=== PATIENT | female | born 1965 | race Caucasian/White ===

== ENCOUNTER 2016-07-06 03:40 | Inpatient (IN) | payer OTHER ==
--- NOTE | ~2016-07-06 | DS ---
Discharge Summary [facility] [address] [facility] [place]. [address] NAME: MELANIE FISHMAN : 65 STATUS : ADM Ginny PAT#: [id number] AGE: 51 ADM/REG DATE : 07/06/16 MR#: [id number] REPORT SERV DATE: 07/09/16 DICTATED BY: SHAKEEL MEHTA DATE: 07/09/16 REPORT STATUS : Draft TRANSCRIBED BY: MODL DATE: 07/09/16 ADMISSION DATE: 07/06/2016 DISCHARGE DATE: 07/09/2016 DIAGNOSES ON ADMISSION: 1. Possible pneumonia. 2. Common variable immunodeficiency. 3. Reactive airway disease. 4. Lupus. DIAGNOSES ON DISCHARGE: 1. No evidence of pneumonia on the CT of the chest and clinically. 2. Asthma exacerbation, improved. 3. History of common variable immunodeficiency, the patient received IVIG infusion while was hospitalized. 4. History of lupus, stable. 5. History of Conn syndrome, status post left adrenalectomy. 6. No evidence of hypokalemia while being in the hospital hospitalized. Potassium was in the normal range without oral potassium supplementation. CONSULTANTS ON THE CASE: Fran Lundy of Pulmonology, nurse practitioner, under supervision of Dr. Wild. IMAGING STUDIES: CTA of the chest done on 07/06 showed a mild pulmonary edema, much less impressive on the plain film. No evidence of pulmonary embolism. No evidence of pneumonia. Chest x-ray, which was done on 07/06, no acute process. HISTORY OF PRESENT ILLNESS: Briefly, this is a 51-year-old female with a history of common variable immunodeficiency and asthma, presented with asthma exacerbation as well as wheezing. The patient was admitted by my colleague, Dr. Keene, who initially thought that the patient may have pneumonia, but the CTA of the chest did not show any evidence of pneumonia. For the details, see history of present illness dictated by Dr. Keene. HOSPITAL COURSE: Briefly, next day after admission, the patient was seen by my colleague, Dr. Diaz, who did not see any evidence of pneumonia, and the patient had a normal white count on admission. Her white count on admission was 10.3, as well as her procalcitonin was less than 0.05. She was afebrile, and the CT of the chest was negative for pneumonia. Dr. Diaz discussed this patient with Dr. Hernandez of Infectious Disease and he stopped her antibiotics, but the Solu-Medrol was continued for her COPD exacerbation as well as the inhalers. The patient improved over the next several days. She also had intravenous IVIG infusion for her common variable immunodeficiency. The patient was unable to receive these infusions at home because she was undergoing transition of her insurance and that is why she did not receive them. She needs to go back to the primary care physician to be sure that she will receive her IVIG infusions. [employer] Representative, Fran Lundy saw this patient, and he also does not think she has pneumonia. Discharge Summary [facility] [address] [place] [address] NAME: MELANIE FISHMAN : 65 STATUS : ADM Ginny PAT#: [id number] AGE: 51 ADM/REG DATE : 07/06/16 MR#: [id number] REPORT SERV DATE: 07/09/16 DICTATED BY: SHAKEEL MEHTA DATE: 07/09/16 REPORT STATUS : Draft TRANSCRIBED BY: SYDNIE DATE: 07/09/16 He recommended for her asthma exacerbation to complete azithromycin and Ceftin for two more days and she needs also tapering course of steroids. She was doing well. Today, her wheezing has resolved and she is ready for discharge today. Also regarding her potassium supplementation, the patient takes at home 20 mEq of potassium three times a day for her history of Conn syndrome and history of adrenalectomy, but here while she was hospitalized, her potassium level was in the normal range, like on 07/06 was 4.4, on 07/07 was 3.9, on 07/08 was 4.0, and today was 4.3 and she was not on any potassium supplementation for all these days. Also, the patient is on valsartan 160 twice a day, so at home the patient takes high dose of potassium 20 mEq three times a day. Because of her potassium being normal and because of risk of hyperkalemia, I recommended the patient to take potassium only 20 mEq once a day and to check her potassium level on Wednesday, 07/13 per her primary care physician, Dr. Renee Hogan. Overall, the patient looks good, she is ready for discharge. DISCHARGE MEDICATIONS: Celebrex 200 mg once a day; Voltaren Gel 1% topically p.r.n.; Flexeril 10 mg a day; azithromycin 500 mg daily for two more days and cefuroxime 500 mg p.o. b.i.d. for two more days; Lexapro 30 mg a day; iron polysaccharide 200 mg three times a day; Neurontin 300 mg before meals and 1200 mg at bedtime; Plaquenil 200 mg daily; levothyroxine 50 mcg a day; magnesium oxide 400 mg three times a day; Singulair 10 mg a day; zoledronic acid 5 mg IV q.24 months; CellCept 1000 mg a day; oxycodone 30 mg p.o. q.12 hours; propranolol 60 mg b.i.d.; psyllium one dose at bedtime; Carafate 1 g p.o. before meals and at bedtime; valsartan 160 p.o. b.i.d.; albuterol inhaled q.4 hours p.r.n.; potassium chloride was recommended to decrease to 20 mEq once a day and to check potassium level on 07/[address] Hogan; Prevacid 30 mg a day; Ambien CR 12.5 mg a day; oxycodone 10/325 five times a day; Xanax 1 mg p.o. four times a day p.r.n.; IVIG injections weekly; albuterol one to two puffs inhaled q.4 hours p.r.n.; was recommended to stop Advil; isosorbide 30 mg a day; Breo Ellipta 100/25 daily; and prednisone 30 mg p.o. for one day, then 20 mg p.o. for one day, then 10 mg p.o. for one day, then 5 mg p.o. for one day, then stop. Norvasc prescription for her blood pressure was given 5 mg p.o. daily. The patient's blood pressure was mostly in the normal range. It was today 148/74, 131/73, 127/61, 142/79, 159/89. She said that sometimes it gets elevated. I recommended to start with low-dose Norvasc. The prescriptions for Norvasc 5 mg a day, Ceftin 500 p.o. b.i.d. for two more days, and Zithromax 500 mg daily for two more days were written by me. Prednisone prescription was written by Fran Lundy. DISCHARGE INSTRUCTIONS: Follow up with digester, Dr. Paniagua, she has an appointment already scheduled, and follow up with Dr. Renee Hogan on Wednesday, 07/13 to check her potassium level. I spent 45 minutes on discharge. MG/MODL Discharge Summary [address] [place]. [address] NAME: MELANIE FISHMAN : 65 STATUS : ADM Ginny PAT#: [id number] AGE: 51 ADM/REG DATE : 07/06/16 MR#: [id number] REPORT SERV DATE: 07/09/16 DICTATED BY: SHAKEEL MEHTA DATE: 07/09/16 REPORT STATUS : Draft TRANSCRIBED BY: SYDNIE DATE: 07/09/16 Shakeel Mehta M.D. / [id number] CC: Chhaya Morrell M.D. Nathan Mull IV, M.D.
--- NOTE | ~2016-07-06 | HP ---
History And Physical [facility] [id number] [facility] [place]. [address] NAME: MELANIE FISHMAN : 65 STATUS : ADM Ginny PAT#: [id number] AGE: 51 ADM/REG DATE : 07/06/16 MR#: [id number] REPORT SERV DATE: 07/06/16 DICTATED BY: ROSELINE OTT DATE: 07/06/16 REPORT STATUS : Draft TRANSCRIBED BY: MODL DATE: 07/06/16 DATE OF ADMISSION: 07/06/2016 PRIMARY CARE PHYSICIAN: Dr. Jeffrey, an auto glass installer. CHIEF COMPLAINT: A 51-year-old female with common variable immunodeficiency now presenting with shortness of breath and evidence of pneumonia. HISTORY OF PRESENTING ILLNESS: The patient's history was obtained through careful interview with the patient and daughter coupled with review of [facility] medical records. The patient has common variable immunodeficiency and had been receiving IVIG infusions weekly for about five years but she had a change in her insurance recently and states that she has been unable to get her IVIG infusions for about six weeks. It was just a couple weeks ago that she began to feel to get what she describes as "allergies" with some sinus drainage that gradually began to descend into her chest. For the last "couple of days", she has had increasing shortness of breath characterized by dyspnea on exertion, a prominent wheeze, and a cough productive of a slight sputum that has a bit of yellow in it. She has had light headedness, had subjective fevers and chills. She describes chest discomfort, a burning sensation with breathing in the middle of her chest, 8/10 severity. She has had nausea, but no vomiting. She describes abdominal swelling and slight lower extremity edema. REVIEW OF SYSTEMS: Otherwise, a 14-point review of systems was obtained and was negative. PAST MEDICAL HISTORY: 1. Common variable immunodeficiency, previously on weekly IVIG infusions for the last five years followed by Dr. Jeffrey, auto glass installer. 2. Lupus with Sjogren's seen by Dr. Tasneem Diaz. 3. Breast cancer in 2003, status post surgical resection. 4. Nephrolithiasis, status post stent placement. 5. Mesenteric lymphadenopathy. 6. Conn's disease, status post left adrenalectomy. 7. Anxiety and depression. 8. Gastroesophageal reflux disorder. 9. Hypothyroidism. 10.Migraine headaches. 11.Pneumonia with ARDS and possible MRSA infection in the past. 12.Right arm neuralgia. History And Physical [address] [address] NAME: MELANIE FISHMAN : 65 STATUS : ADM Ginny PAT#: [id number] AGE: 51 ADM/REG DATE : 07/06/16 MR#: [id number] REPORT SERV DATE: 07/06/16 DICTATED BY: ROSELINE OTT DATE: 07/06/16 REPORT STATUS : Draft TRANSCRIBED BY: SYDNIE DATE: 07/06/16 PAST SURGICAL HISTORY: 1. Bilateral mastectomy. 2. Left adrenalectomy. 3. Hysterectomy with oophorectomy. 4. Lumbar spine surgery. 5. Cholecystectomy. ALLERGIES: NO KNOWN DRUG ALLERGIES. 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 She has total of two children. Lives in [place], [place]. No tobacco abuse. No alcohol abuse. FAMILY HISTORY: Father with pulmonary embolism, CABG, at 63 years of age. Brother with lymphoma. Mother with obstructive sleep apnea, of COPD at 69 years of age. A strong family history of stroke. CURRENT MEDICATIONS: Albuterol inhaler, Xanax 1 mg p.o. four times a day as needed, Celebrex 200 mg p.o. b.i.d., Flexeril 10 mg p.o. 4 times a day, diclofenac topical gel, Lexapro 30 mg p.o. daily, iron supplement, Breo Ellipta inhaled daily, Neurontin 300 mg p.o. t.i.d. and 1200 mg at bedtime, Plaquenil 200 mg daily, Advil p.r.n., Prevacid 30 mg p.o. b.i.d., Synthroid 50 mcg daily, magnesium 3 times a day, Singulair 10 mg daily, CellCept 1000 mg p.o. b.i.d., Percocet 5 times a day as needed, OxyContin 30 mg p.o. q.12 hours scheduled, eye drops, potassium 20 mEq p.o. t.i.d., propranolol 60 mg p.o. b.i.d., Metamucil sucralfate 1 g before meals and at bedtime, isosorbide, Diovan 160 mg p.o. b.i.d., Dashawn. PHYSICAL EXAMINATION: VITAL SIGNS: Temperature 98.9, pulse 102, blood pressure 162/105, respiratory rate 20, O2 saturation 97% on room air. GENERAL: Pleasant, cooperative female, in no significant distress. HEENT: Pupils equal, round, and reactive to light. No conjunctival pallor. No scleral icterus. Nares are patent. Oropharynx is clear of obstruction. Moist mucous membranes. NECK: Trachea midline. No thyromegaly. LYMPH: No cervical lymphadenopathy. No supraclavicular lymphadenopathy. RESPIRATORY: Scattered rhonchi and inspiratory and expiratory wheezes that are quite harsh, "tight" exam. I do not appreciate any focal egophony by exam. She does have a labored respiratory effort. CARDIOVASCULAR: Tachycardic. Regular rhythm. No murmurs, rubs, or gallops. No extremity edema. The patient has slight minimally pitting lower extremity edema around her ankles. That is symmetrical. ABDOMEN: Soft, nontender, nondistended. Normal bowel sounds auscultated throughout. No organomegaly. DERMATOLOGICAL: Warm, dry. EXTREMITIES: No pallor. No cyanosis. PSYCHIATRIC: Normal affect. Good mood. Alert and oriented x3. LABORATORY DATA: White blood cell count 10, hemoglobin 12, hematocrit 37, platelets 287. History And Physical [address] [address] NAME: MELANIE FISHMAN : 65 STATUS : ADM Ginny PAT#: [id number] AGE: 51 ADM/REG DATE : 07/06/16 MR#: [id number] REPORT SERV DATE: 07/06/16 DICTATED BY: ROSELINE OTT DATE: 07/06/16 REPORT STATUS : Draft TRANSCRIBED BY: MODL DATE: 07/06/16 Sodium 143, potassium 3.4, chloride 104, bicarb 29, BUN 6, creatinine 0.83, glucose 85. Urinalysis negative for infection. Lactic acid 1.1. INR 1.0. STUDIES: 1. Chest x-ray by my own evaluation shows a patchy infiltrate in the left lower lung. 2. CT angiogram of the chest shows no pulmonary embolism, confirms left lower lung pneumonia. 3. EKG by my own evaluation shows sinus rhythm, no major abnormalities otherwise. ASSESSMENT AND PLAN: 1. Community-acquired pneumonia. Check blood cultures. Place on IV antibiotics. History of MRSA pneumonia and ARDS. Place on IV vancomycin as well. Consult infectious disease. 2. Common variable immunodeficiency but also has immunodeficiency secondary to chronic Plaquenil and CellCept use. The patient has skipped IVIG infusions for six weeks. We will continue IVIG infusion here. 3. Reactive airway disease. Place on DuoNeb nebulizers, IV steroids. 4. Lupus. Check complement levels. KPL/MODL Roseline Ott M.D. / [id number] CC: Chhaya Gilmore M.D. Shannon McCallie, M.D.
--- NOTE | ~2016-07-06 | CN ---
Consultation Report [facility] [address] [place]. [address] NAME: SARAH MARS : 65 STATUS : ADM Ginny PAT#: [id number] AGE: 51 ADM/REG DATE : 07/06/16 MR#: [id number] REPORT SERV DATE: 07/08/16 DICTATED BY: PEDRO BEAN DATE: 07/08/16 REPORT STATUS : Draft TRANSCRIBED BY: MODL DATE: 07/08/16 CONSULTATION NOTE DATE OF CONSULTATION: 07/08/2016 CHIEF COMPLAINT: Shortness of breath and wheezing. HISTORY OF PRESENT ILLNESS: Ms. Sarah Mars is a very pleasant 51-year-old white female with a past medical history significant for previous respiratory failure, requiring intubation; CVID, on replacement therapy; reactive airway disease; and obstructive sleep apnea with CPAP compliance who presents to [facility]'s Emergency Room with complaints of chest congestion and cough of roughly one week's duration. It should be noted that Ms. Mars has not been hospitalized recently and has done fairly well as an outpatient given her comorbidities. Ms. Mars is currently followed by Dr. Paniagua in our outpatient clinic. She is not usually require supplemental oxygen. She is on a pulmonary regimen of albuterol, Breo Ellipta, Singulair, and Incruse Ellipta of which she is compliant. She describes herself as a never smoker. The patient does have known obstructive sleep apnea, is compliant with CPAP therapy. She describes her exercise tolerance as being somewhat limited, being able to walk less than 100 yards before experiencing some degree of shortness of breath. Ms. Mars was hospitalized approximately a year ago when she had a severe MRSA pneumonia, which required intubation, mechanical ventilation, and a somewhat prolonged ICU stay. She did eventually transferred to a rehab facility and eventually transitioned to home. She has been intermittently compliant with her IVIG infusions. There have been some issues with insurance covers and she has missed a few doses. She has had occasional upper respiratory infections, but nothing all that significant in the interim period. More recently, she began to experience upper respiratory symptoms including increased nasal drainage and some mild cough. She states that "it eventually moved into her chest." She began to cough more, and as such, agreed she developed some soreness in her chest and abdomen. These symptoms became progressively worse and culminated in her presentation to [facility]'s Emergency Room. Upon arrival, she had a systolic blood pressure in the 160s. She was afebrile. Oxygen saturation was appropriate on room air. Initial blood work revealed a white blood cell count of 10,300. Creatinine was 0.83. She did undergo a chest x-ray, which was suggestive of a left lower lobe pneumonia. She did eventually undergo a CTA of the chest two days ago, which had findings more suggestive of pulmonary edema rather than acute infection. The patient did remain on community-acquired antibiotic coverage. She did improve until yesterday and was even being considered for discharge when she started to develop some symptoms consistent with bronchospasm. For the aforementioned reasons, she has been referred to the Pulmonary Service for further assessment. Currently, Ms. Mars's main pulmonary complaint is wheezing. She does have a dry Consultation Report [address] [place]. [address] NAME: SARAH MARS : 65 STATUS : ADM Ginny PAT#: [id number] AGE: 51 ADM/REG DATE : 07/06/16 MR#: [id number] REPORT SERV DATE: 07/08/16 DICTATED BY: PEDRO BEAN DATE: 07/08/16 REPORT STATUS : Draft TRANSCRIBED BY: SYDNIE DATE: 07/08/16 nonproductive cough. She does have some shortness of breath when she ambulates from the bed to the chair. She is on room air. She has had no recent episodes of hemoptysis. She does have known restrictive airway disease, has demonstrated on pulmonary function testing. She does have symptoms consistent with reactive airway disease. The patient currently denies any murmurs, angina, or palpitations. She has had some increasing lower extremity edema as of late. In regard to constitutional symptoms, she did have subjective fevers. She denies any rigors. She has had no radiating chest pain. She has had no nausea or vomiting. PAST MEDICAL HISTORY: 1. Respiratory failure, requiring intubation. 2. Common variable immunodeficiency, on IVIG replacement. 3. Hypothyroidism. 4. Gastroesophageal reflux disease. 5. Hypertension. 6. Systemic lupus erythematosus. 7. Obstructive sleep apnea with CPAP compliance. 8. Nephrolithiasis. 9. Breast cancer, status post right mastectomy. 10.Pneumonia. 11.Conn syndrome. PAST SURGICAL HISTORY: 1. Total abdominal hysterectomy with bilateral salpingo-oophorectomy. 2. Right mastectomy with TRAM flap. 3. Discectomy of lumbar spine. 4. Cholecystectomy. 5. Left adrenalectomy. FAMILY HISTORY: The patient states her mother had COPD as well as obstructive sleep apnea. SOCIAL HISTORY: The patient is . She has two children, in good health. She works as a physical therapist in the outpatient clinic. She denies any known exposures to dust, silica, or asbestos. She has no new or exotic pets within the home. TOBACCO/ALCOHOL: As previously mentioned, the patient describes herself as a never smoker. She denies any recent alcohol or illicit drug use. MEDICATIONS: 1. Albuterol. 2. Xanax 1 mg. 3. Celebrex 200 mg. 4. Flexeril 10. Consultation Report [address] [place]. [address] NAME: SARAH MARS : 65 STATUS : ADM Ginny PAT#: [id number] AGE: 51 ADM/REG DATE : 07/06/16 MR#: [id number] REPORT SERV DATE: 07/08/16 DICTATED BY: PEDRO BEAN DATE: 07/08/16 REPORT STATUS : Draft TRANSCRIBED BY: SYDNIE DATE: 07/08/16 5. Lexapro 20 mg. 6. Breo Ellipta. 7. Gabapentin 300. 8. Plaquenil 200 mg. 9. Gammagard. 10.Lansoprazole 30 mg. 11.Levothyroxine 50 mcg. 12.Magnesium oxide 400 mg. 13.Montelukast 10 mg. 14.Mycophenolate 500 mg. 15.Percocet 10/325. 16.Potassium chloride 20 mEq. 17.Propranolol 60 mg. 18.Incruse Ellipta. 19.Valsartan 160 mg. 20.Zolpidem 12.5 mg. ALLERGIES: THE PATIENT HAS NO KNOWN DRUG ALLERGIES. REVIEW OF SYSTEMS: A complete review of systems was performed with the pertinent positives and negatives contained within the body of the HPI. PHYSICAL EXAMINATION: VITAL SIGNS: Blood pressure is 156/81, heart rate is 98, T-max is 98.0, respiratory rate is 16, and SpO2 is 95% on room air. GENERAL: The patient is a pleasant, well-nourished/well-developed female who is not currently exhibiting any signs of acute distress. Skin: Skin with appropriate texture and turgor. No rashes, lesions, or ulcers. Nails are clear without cyanosis or clubbing. HEENT: Head: Skull is normocephalic/atraumatic. Facies symmetric. No masses or lesions. Eyes: Sclera anicteric, conjunctiva pink without exudates. Extra ocular movements intact. Pupils are equal, round, reactive to light. Ears: Auricles and tragus without pain to palpation. Hearing is grossly intact. Nose: Bilateral nasal patency. Sinuses without tenderness upon palpation. Throat: The patient has good dentition. Mallampati class III to IV. Lips, oral mucosa, tongue, palate, and pharynx pink and moist without lesions. Uvula rises equally on phonation. Tongue midline without deviation. NECK: Neck supple. Trachea midline. No cervical lymphadenopathy appreciated. THORAX/LUNGS: Thorax is symmetric with equal chest rise. Diffuse expiratory wheezes appreciated throughout. CARDIOVASCULAR: Regular rate and rhythm. No murmurs, rubs, or gallops. Anterior chest without thrills, heaves, or lifts. ABDOMEN: Soft. Non-distended, non-tender. Active bowel sounds in all four quadrants. No hepatosplenomegaly noted. Consultation Report [address] [place]. [address] NAME: SARAH MARS : 65 STATUS : ADM Ginny PAT#: [id number] AGE: 51 ADM/REG DATE : 07/06/16 MR#: [id number] REPORT SERV DATE: 07/08/16 DICTATED BY: PEDRO BEAN DATE: 07/08/16 REPORT STATUS : Draft TRANSCRIBED BY: SYDNIE DATE: 07/08/16 PERIPHERAL VASCULAR: Mild nonpitting edema in the lower extremities. No varicosities, stasis changes, open sores, ulcerations, or phlebitis. 2+ pulses in radial and dorsalis pedis. MUSCULOSKELETAL: Full AROM and PROM in all joints. No evidence of erythema, deformity, or crepitus. NEUROLOGIC: CN II - XII grossly intact. Good muscle bulk and tone bilaterally. Strength 5/5 throughout. PSYCHIATRIC: Patient demonstrates good judgment and insight. Pt is A&O x 3. ACCESSORY DATA: Magnesium is 1.8. BNP is 33.6. Procalcitonin is negative at 0.05. Arterial blood gas obtained on room air reveals a pH 7.43, PaCO2 of 31, PaO2 of 80, and a bicarb of 20.1. White blood cell count today is 13,700, hemoglobin and hematocrit is 11.0 and 34.0. CTA of the chest reveals no clear signs of pulmonary embolism. There is some mild pulmonary edema as well as atelectatic lung. Blood cultures are negative to date. Urine antigens for Strep and Legionella are negative. IMPRESSION: 1. Exacerbation of asthma. 2. Community-acquired pneumonia. 3. Atelectasis. 4. Pulmonary edema. 5. Obstructive sleep apnea with CPAP compliance. 6. Common variable immunodeficiency, currently on replacement therapy. 7. Systemic lupus erythematosus, on chronic immunosuppressants. PLAN: 1. At this time, we will increase the patient's steroids and place her on a full armamentarium of nebulized medications. 2. In regard to the patient's community-acquired pneumonia, she has been treated on appropriate coverage. Her leukocytosis is likely attributed to her steroid regimen. Certainly in an immunocompromised patient, there is a possibility of an atypical infection. That being said, she does not appear toxic today and we have no immediate plans to pursue bronchoscopy. 3. In regard to the patient's atelectasis, we will increase her pulmonary toilet regimen. 4. In regard to the patient's pulmonary edema on CT, her low BNP has been noted. We will provide her with a one time dose of oral Lasix and follow with further recommendations. 5. In regard to the patient's common variable immunodeficiency, her noncompliance is largely secondary to insurance issues. Her plans moving forward is to be more compliant. The aforementioned impression and plan has been discussed with Dr. Wild who will follow further recommendations. We thank you for this consult and look forward to participating in the care of Sarah Mars. Consultation Report [address] [address] NAME: SARAH MARS : 65 STATUS : ADM Ginny PAT#: [id number] AGE: 51 ADM/REG DATE : 07/06/16 MR#: [id number] REPORT SERV DATE: 07/08/16 DICTATED BY: PEDRO BEAN DATE: 07/08/16 REPORT STATUS : Draft TRANSCRIBED BY: MODL DATE: 07/08/16 GBS/MODL Pedro Bean PA-C / [id number] CC: Chhaya Morrell M.D.
[2016-07-06 03:03] LABS: BASOPHILS 0.2 %; BASOPHILS ABSOLUTE 0.02 10/3/uL (0.0-0.16); EOSINOPHILS 1.8 %; EOSINOPHILS ABSOLUTE 0.19 10/3/uL (0.0-0.53); ER CBC TAT 0 Hrs 05 Mins; HEMOGLOBIN 12.2 g/dL (12.0-16.0); IMMATURE GRANULOCYTES 0.9 %; IMMATURE GRANULOCYTES ABSOLUTE 0.09 10/3/uL (0.0-0.11); LYMPHOCYTES 37.9 %; LYMPHOCYTES ABSOLUTE 3.91 10/3/uL (0.67-4.30); MEAN CORPUSCULAR HEMOGLOB 31.1 pg (26.0-34.0); MEAN PLATELET VOLUME 10.9 fL (9.2-13.0); MONOCYTES 6.3 %; MONOCYTES ABSOLUTE 0.65 10/3/uL (0.21-1.20); NEUTROPHILS 52.9 %; NEUTROPHILS ABSOLUTE 5.47 10/3/uL (2.02-8.40); PLATELET COUNT 287 10/3/uL (150-400); RBC DISTRIBUTION WIDTH 13.4 % (12.0-16.0); RED CELL COUNT 3.92 10/6/uL (4.0-5.6); WHITE BLOOD CELLS 10.3 10/3/uL (4.5-10.5)
[2016-07-06 03:04] LABS: MEAN CORPUSCULAR VOLUME 94.4 fL (80-100)
[2016-07-06 03:05] LABS: MANUAL DIFF NO %
[2016-07-06 03:17] LABS: PROTIME (NOT ORD) 12.9 SEC (12.0-14.5)
[2016-07-06 03:22] LABS: A/G RATIO 1.2 (0.7-1.9); ALBUMIN 3.9 G/DL (3.5-5.0); BUN (BLOOD UREA NITROGEN) 6 MG/DL (6-23); CALCIUM, SERUM 9.3 MG/DL (8.5-10.4); CHLORIDE, SERUM 104 MMOL/L (96-112); CO2 (CARBON DIOXIDE) 29 MMOL/L (24-34); CREATININE 0.83 MG/DL (0.55-1.02); GFR AFRICAN AMERICAN 95 ML/MIN (>=60); GFR NON AFRICAN AMERICAN 82 ML/MIN (>=60); GLOBULIN 3.2 G/DL (2.5-4.1); POTASSIUM, SERUM 3.4 MMOL/L (3.5-5.3); SGOT(AST) 18 U/L (5-40); SGPT(ALT) 27 U/L (5-65); SODIUM, SERUM 143 MMOL/L (135-148); TOTAL BILIRUBIN 0.6 MG/DL (0-1.2); TOTAL PROTEIN 7.1 G/DL (6.0-8.5)
[2016-07-06 03:25] LABS: ALKALINE PHOSPHATASE 92 U/L (45-117); GLUCOSE, SERUM 85 MG/DL (60-99)
[2016-07-06 03:30] LABS: LACTATE 1.1 MMOL/L (0.3-2.4); PARTIAL THROMBO TIME 21.1 SEC (22.5-37.2)
[~2016-07-06 03:40] MED LIST: ADVIL PO; AMBIEN CR12.5 MG PO; BLINK EYE DROPS OPH; BONIVA150 MG PO; CAT2 PO; CELEBREX2 PO; CELEXA10 PO; CELLCEPT5 PO; DEMA20 PO; DIOV160 PO; EFFEX25 PO; EFFEXOR100 MG PO; EZFE 200200 MG PO; FISH OIL1200 MG PO; FLEX PO; GAMMAGARD SC; INDE60 PO; IVIG IV; KDUR20 PO; KLOR-CON M2020 MEQ PO; L40 PO; LEXAPRO10 PO; LEXAPRO20 PO; LOP50 PO; MAGOX4 PO; METAMUCIL CAN7 OZ PO; MICRO-K10 MEQ PO; NEUR300 PO; NEUR600 PO; OXYCONTIN30 MG PO; P20 PO; PERCOCET1 TA4 PO; PLAQ200B PO; PREV30 PO; PROVENTSOL INH; RECLAST IV; REG PO; SINGULAIR1 PO; SUCR PO; SYN.05 PO; SYSTANE OPH; VENTOLIN HFA INH; VOLTAREN1 % TOP; XANAX1 MG PO; ZAROX2.5B PO; ZESTRIL10 MG PO
[2016-07-06 04:13] LABS: ASCORBIC ACID (UR NOT ORDER) NEG (NEG); BILIRUBIN, URINE NEGATIVE (NEG); ER URINALYSIS TAT 0 Hrs 00 Mins; KETONE, URINE NEGATIVE (NEG); LEUKOCYTE ESTERASE(NOT OR NEG (NEG); NITRITE (URINE) NEG (NEG); WBC (NOT ORDERED) (RFLEX) 0 (0-5)
[2016-07-06] MEDS ORDERED: INCRUSE ELLI62.5 MCG INH (05:56)
[2016-07-06] MEDS ORDERED: BREO ELLIPTA INH (05:56)
[2016-07-06] MEDS ORDERED: ISOSORBIDE PO (05:56)
[2016-07-06 06:07] LABS: PROCALCITONIN <0.05 ng/mL (<0.5)
[2016-07-06 13:32] LABS: BUN (BLOOD UREA NITROGEN) 9 MG/DL (6-23); CALCIUM, SERUM 8.9 MG/DL (8.5-10.4); CHLORIDE, SERUM 107 MMOL/L (96-112); CO2 (CARBON DIOXIDE) 26 MMOL/L (24-34); COMPLEMENT C3 149 MG/DL (75-161); COMPLEMENT C4 27.7 MG/DL (16-47); CREATININE 0.62 MG/DL (0.55-1.02); GFR AFRICAN AMERICAN 121 ML/MIN (>=60); GFR NON AFRICAN AMERICAN 104 ML/MIN (>=60); GLUCOSE, SERUM 131 MG/DL (60-99); POTASSIUM, SERUM 4.4 MMOL/L (3.5-5.3); SODIUM, SERUM 143 MMOL/L (135-148); TROPONIN I <0.02 NG/ML (<0.05)
[2016-07-06 14:09] LABS: BE (BASE EXCESS) -3.3 MEQ/L (0 +/- 2.5); CARBOXYHEMOGLOBIN 3.3 % (0-3); HCO3 (ACTUAL BICARBONATE) 20.1 MEQ/L (23-27); HEMOBLOGIN CONTENT 12.1 G/DL (12-16); INSTRUMENT SERIAL # 8087; METHEMOGLOBIN 0.3 % (0-3); O2 CONTENT 15.7 VOL% (18-24); PCO2 (CO2 TENSION) 31 MMHG (35-45); PO2 (O2 TENSION) 80 MMHG (79-93); SAMPLE Arterial; pH 7.43 (7.37-7.43)
[2016-07-07 06:09] LABS: BASOPHILS 0.1 %; BASOPHILS ABSOLUTE 0.02 10/3/uL (0.0-0.16); EOSINOPHILS 0.3 %; EOSINOPHILS ABSOLUTE 0.04 10/3/uL (0.0-0.53); IMMATURE GRANULOCYTES 0.6 %; IMMATURE GRANULOCYTES ABSOLUTE 0.08 10/3/uL (0.0-0.11); LYMPHOCYTES 15.9 %; LYMPHOCYTES ABSOLUTE 2.17 10/3/uL (0.67-4.30); MEAN CORPUS HGB CONC 32.4 g/dL (32.0-36.0); MEAN CORPUSCULAR HEMOGLOB 30.9 pg (26.0-34.0); MEAN CORPUSCULAR VOLUME 95.5 fL (80-100); MEAN PLATELET VOLUME 10.8 fL (9.2-13.0); MONOCYTES 2.9 %; MONOCYTES ABSOLUTE 0.39 10/3/uL (0.21-1.20); NEUTROPHILS 80.2 %; NEUTROPHILS ABSOLUTE 10.96 10/3/uL (2.02-8.40); PLATELET COUNT 261 10/3/uL (150-400); RBC DISTRIBUTION WIDTH 13.4 % (12.0-16.0); RED CELL COUNT 3.56 10/6/uL (4.0-5.6); WHITE BLOOD CELLS 13.7 10/3/uL (4.5-10.5)
[2016-07-07 06:10] LABS: MANUAL DIFF NO %
[2016-07-07 06:25] LABS: BUN (BLOOD UREA NITROGEN) 10 MG/DL (6-23); CALCIUM, SERUM 9.1 MG/DL (8.5-10.4); CHLORIDE, SERUM 106 MMOL/L (96-112); CO2 (CARBON DIOXIDE) 25 MMOL/L (24-34); CREATININE 0.62 MG/DL (0.55-1.02); GFR AFRICAN AMERICAN 121 ML/MIN (>=60); GFR NON AFRICAN AMERICAN 104 ML/MIN (>=60); POTASSIUM, SERUM 3.9 MMOL/L (3.5-5.3); SODIUM, SERUM 142 MMOL/L (135-148)
[2016-07-07 06:26] LABS: GLUCOSE, SERUM 99 MG/DL (60-99)
[2016-07-08 06:25] LABS: BUN (BLOOD UREA NITROGEN) 10 MG/DL (6-23); CALCIUM, SERUM 9.2 MG/DL (8.5-10.4); CHLORIDE, SERUM 106 MMOL/L (96-112); CO2 (CARBON DIOXIDE) 25 MMOL/L (24-34); CREATININE 0.66 MG/DL (0.55-1.02); GFR AFRICAN AMERICAN 119 ML/MIN (>=60); GFR NON AFRICAN AMERICAN 102 ML/MIN (>=60); GLUCOSE, SERUM 107 MG/DL (60-99); SODIUM, SERUM 142 MMOL/L (135-148)
[2016-07-09 06:06] LABS: BASOPHILS 0.1 %; BASOPHILS ABSOLUTE 0.01 10/3/uL (0.0-0.16); EOSINOPHILS 0.1 %; EOSINOPHILS ABSOLUTE 0.01 10/3/uL (0.0-0.53); HEMOGLOBIN 11.9 g/dL (12.0-16.0); IMMATURE GRANULOCYTES 0.4 %; IMMATURE GRANULOCYTES ABSOLUTE 0.05 10/3/uL (0.0-0.11); LYMPHOCYTES ABSOLUTE 1.82 10/3/uL (0.67-4.30); MEAN CORPUS HGB CONC 32.2 g/dL (32.0-36.0); MEAN CORPUSCULAR HEMOGLOB 30.7 pg (26.0-34.0); MEAN CORPUSCULAR VOLUME 95.6 fL (80-100); MEAN PLATELET VOLUME 10.9 fL (9.2-13.0); MONOCYTES 1.5 %; MONOCYTES ABSOLUTE 0.21 10/3/uL (0.21-1.20); NEUTROPHILS 84.9 %; NEUTROPHILS ABSOLUTE 11.92 10/3/uL (2.02-8.40); PLATELET COUNT 274 10/3/uL (150-400); RBC DISTRIBUTION WIDTH 13.7 % (12.0-16.0); RED CELL COUNT 3.87 10/6/uL (4.0-5.6)
[2016-07-09 06:07] LABS: MANUAL DIFF NO %
[2016-07-09 06:24] LABS: BUN (BLOOD UREA NITROGEN) 12 MG/DL (6-23); CALCIUM, SERUM 9.3 MG/DL (8.5-10.4); CHLORIDE, SERUM 100 MMOL/L (96-112); CO2 (CARBON DIOXIDE) 26 MMOL/L (24-34); CREATININE 0.67 MG/DL (0.55-1.02); FREE T4 0.92 NG/DL (0.76-1.46); GFR AFRICAN AMERICAN 118 ML/MIN (>=60); GFR NON AFRICAN AMERICAN 102 ML/MIN (>=60); GLUCOSE, SERUM 113 MG/DL (60-99); PHOSPHORUS, SERUM 4.8 MG/DL (2.5-4.5); POTASSIUM, SERUM 4.3 MMOL/L (3.5-5.3); SODIUM, SERUM 137 MMOL/L (135-148)
[2016-07-09] MEDS ORDERED: CEFT5 PO (12:37)
[2016-07-09] MEDS ORDERED: ZITHROMAX500 MG PO (12:37)
[2016-07-09] MEDS ORDERED: NORV5 PO (12:37)
[2016-07-09] MEDS ORDERED: STERAPRED DS10 MG (12:38)
== END 2016-07-09 23:08 | disposition home or self-care (01) | DRG 202 ==
LOC: ER 03:40 → 5SO 05:27
PROVIDERS: Hospitalist; Internal Medicine; Nurse Practitioner Acute Care; Physician Assistant Medical
DX: J45.901 Unspecified asthma with (acute) exacerbation (principal); D83.9 Common variable immunodeficiency, unspecified; M32.9 Systemic lupus erythematosus, unspecified; J98.11 Atelectasis; E26.01 Conn's syndrome; G47.33 Obstructive sleep apnea (adult) (pediatric); Z79.899 Other long term (current) drug therapy; Z79.52 Long term (current) use of systemic steroids; Z85.3 Personal history of malignant neoplasm of breast; Z90.13 Acquired absence of bilateral breasts and nipples; R59.1 Generalized enlarged lymph nodes; F41.9 Anxiety disorder, unspecified; F32.9 Major depressive disorder, single episode, unspecified; K21.9 Gastro-esophageal reflux disease without esophagitis; E03.9 Hypothyroidism, unspecified; Z87.01 Personal history of pneumonia (recurrent); Z90.710 Acquired absence of both cervix and uterus; Z90.49 Acquired absence of other specified parts of digestive tract; Z98.890 Other specified postprocedural states; Z82.49 Family history of ischemic heart disease and other diseases of the circulatory system; Z95.1 Presence of aortocoronary bypass graft; Z85.72 Personal history of non-Hodgkin lymphomas; Z82.3 Family history of stroke
CPT/HCPCS: 36600; 71010; 71275; 80048; 80053; 81001; 82805; 83605; 83735; 83880; 84100; 84145; 84439; 84443; 84481; 84484; 85025; 85610; 85730; 86160; 87040; 93005; 94640; 96374; 99291; A9270-GY; G0463; J0360; J0456; J1568; J2405; J2550; J2920; J2930; J3370; Q9967